=== PATIENT | male | born 1965 | race Caucasian/White ===

== ENCOUNTER → 2016-09-11 | Outpatient (CLI) | payer OTHER ==
[~2016-09-11] MED LIST: ASPI81TA28 PO; ATEN50TA8 PO; CHOL1000 PO; COEN1TAB3 PO; DULA0.5I SC; GLUC15009 PO; GLY/5 PO; LISI10TA PO; METF-384 PO; MULT-506 PO; OMEG10007 PO; PIOG1TAB23 PO; SIMV40TA2 PO
[2016-09-11 13:17] LABS: ESTIMATED AVERAGE GLUCOSE 192 mg/dl; HA1C FLAG Normal (Normal)
[2016-09-11 13:18] LABS: RATIO 8.3 mcg/mg (0-30.0)
[2016-09-11 14:04] LABS: ALT/SGPT 97 U/L (12-78); AST/SGOT 55 U/L (15-37); BLOOD UREA NITROGEN 16 mg/dl (7-18); BUN/CREATININE RATIO 16.3 (10-20); CALCIUM 9.5 mg/dl (8.5-10.1); CARBON DIOXIDE 28 mmol/L (21-32); CHLORIDE 100 mmol/L (98-107); CHOLESTEROL 191 mg/dl (0-200); CREATININE 0.98 mg/dl (0.60-1.40); GLUCOSE 207 mg/dl (70-99); POTASSIUM 4.6 mmol/L (3.5-5.1); SODIUM 136 mmol/L (136-145); TRIGLYCERIDES 241 mg/dl (0-150); VERY LOW DENSITY LIPOPROT CALC 48 mg/dl
[2016-09-11 14:06] LABS: ALB/GLOB RATIO 1.1 (0.9-2); ALKALINE PHOSPHATASE 79 U/L (45-117); CHOLESTEROL/HDL RATIO 4.5; HDL CHOLESTEROL 42 mg/dl; LDL CHOLESTEROL CALCULATED 101 mg/dl
== END | disposition home or self-care (01) ==
LOC: C.LABPBG 11:16
PROVIDERS: ATTEND Physician Assistant
DX: E78.5 Hyperlipidemia, unspecified (principal); E11.9 Type 2 diabetes mellitus without complications; I10 Essential (primary) hypertension

== ENCOUNTER → 2016-10-03 | Outpatient (CLI) | payer OTHER ==
[2016-10-03 12:43] LABS: HEMATOCRIT 42.9 % (42-52); MEAN CELL VOLUME 88.3 fL (80-100); MEAN CORPUSCULAR HEMOGLOBIN 28.2 pg (25-34); MEAN CORPUSCULAR HGB CONC 31.9 g/dl (32-36); MEAN PLATELET VOLUME 9.1 fL (7.4-10.4); PLATELET COUNT 186 K/uL (130-400); RED BLOOD COUNT 4.86 M/uL (4.7-6.1); WHITE BLOOD COUNT 7.15 K/uL (4.8-10.8)
[2016-10-03 13:03] LABS: THYROID STIMULATING HORMONE 0.87 uIu/ml (0.300-4.500)
== END | disposition home or self-care (01) ==
LOC: C.LAB1850 10:47
PROVIDERS: ATTEND Internal Medicine Endocrinology, Diabetes & Metabolism
DX: E11.9 Type 2 diabetes mellitus without complications (principal)

== ENCOUNTER → 2016-10-05 | Outpatient (CLI) | payer OTHER ==
--- NOTE | 2016-10-05 08:51 | DIAGNOSTIC IMAGING REPORT ---
THYROID ULTRASONOGRAPHY CLINICAL HISTORY: Thyromegaly COMPARISON STUDY: No previous studies for comparison. FINDINGS: The right of the thyroid measures 5.5 x 2 x 2.3 cm. The left lobe measures 5.5 x 2.5 x 2.1 cm. Both lobes are heterogeneous in echotexture. No focal nodules are visualized. IMPRESSION: Slight thyroid gland heterogeneity. No focal masses identified. Electronically signed by: Samuel Montague M.D. 10/05/2016 8:50 AM Dictated Date/Time: 10/05/2016 8:49 AM
--- NOTE | 2016-10-05 08:56 | DIAGNOSTIC IMAGING REPORT ---
ABDOMINAL ULTRASOUND, RIGHT UPPER QUADRANT HISTORY: Elevated transaminase level. COMPARISON: None. FINDINGS: Hepatic echogenicity is increased. This study is compromised by suboptimal penetration. No gallstones are identified. There is no gallbladder wall thickening. No biliary ductal dilatation is evident. Common bile duct measures 6 mm in caliber although is partially obscured. The pancreatic body is normal. The head and tail are obscured. There is no right hydronephrosis. IMPRESSION: 1. Increased hepatic echogenicity consistent with fatty infiltration. 2. No biliary ductal dilatation or gallstones. 3. Study compromised by suboptimal penetration. Electronically signed by: Huy Barnett M.D. 10/05/2016 8:55 AM Dictated Date/Time: 10/05/2016 8:49 AM
== END | disposition home or self-care (01) ==
LOC: C.ULTR 08:15
PROVIDERS: ATTEND Internal Medicine Endocrinology, Diabetes & Metabolism
DX: E01.0 Iodine-deficiency related diffuse (endemic) goiter (principal); R74.0 Nonspecific elevation of levels of transaminase and lactic acid dehydrogenase [LDH]

== ENCOUNTER → 2016-10-18 | Outpatient (CLI) | payer OTHER ==
[~2016-10-18] VITALS: Ht 172.7 cm; Wt 121.0 kg
[2016-10-18 12:22] VITALS: BP 145/87; PULSE 82; Ht 172.7 cm; Wt 121.0 kg
== END | disposition home or self-care (01) ==
LOC: C.NEUR 09:20
PROVIDERS: ATTEND Internal Medicine Pulmonary Disease
DX: G47.33 Obstructive sleep apnea (adult) (pediatric) (principal)

== ENCOUNTER → 2016-11-27 | Outpatient (CLI) | payer OTHER ==
--- NOTE | 2016-11-28 06:11 | SPLIT NIGHT TECHNICIAN REPORT ---
[facility] Split Night Polysomnogram - Shelving Supervisor Report Study date: 11/27/2016 Referring Physician: MARCIA HURD DO, DO Name: HARDEEP VALLE Shelving Supervisor: BETH Fisher. Date of : 1965 Height: 51 years, Height 5' 8" Sex: Male Weight: 266 lbs Age: 51 BMI: Medications: 40.44 ONETOUCH SYSTEM, VICTOZA 18 MG/3 ML, VIT D 03306 UNIT, ASPIRIN 81 MG, ATENOLOL 50 MG, CO Q 10 100 MG, FISH OIL, GLUCOSAMINE 1500 MG, GLYBURIDE 5 MG, LISINOPRIL 10 MG, METFORMIN 1000 MG, MULTI VIT, PIOGLITAZONE 30 MG, SIMVASTATIN 40 MG Patient History 51 yr-old male here for a baseline/split study. CPAP will be introduced if the AHI exceeds 15. He has a history of HTN and fatigue. His Pattison scale is 4. The test was started on room air. ETCO2 testing was not utilized during this study. Room 3 Parameters Monitored NPSG: E1-M2, E2-M1, Fp1-M2, Fp2-M1, F3-M2, F4-M2, F4-M1, C3-M2, C4-M2, C4-M1, O1-M2, O2-M2, O2-M1, T3-M2, T4-M1, P3-M2, P4-M1, CHIN1, CHIN2, HR, EKG, Legs, PFLOW, SNOR, FLOW, CFLOW, Tidal Volume, THOR, ABDO, SpO2, PLTH, CPRESS, ETCO2 Wave, ETCO2, pH SLEEP SUMMARY DATA DIAGNOSTIC TREATMENT Lights Out: 10:09:55 PM 1:18:55 AM Lights On: 1:13:25 AM 5:43:25 AM Total Recording Time (TRT): 183.5 min. 264.5 min. Total Sleep Time (TST): 127.5 min. 142.5 min. NREM Time: 127.5 min. 114.5 min. REM Time: 0.0 min. 28.0 min. Sleep Period Time (SPT): 141.5 min. 164.5 min. Sleep Efficiency (SE): 69 % 54 % Sleep Latency: 42.0 min. 94.5 min. Arousal Index: 25.9 16.4 PAP Treatment Levels: 4, 6, 8 * Optimal Pressure(s) SLEEP STAGING DATA DIAGNOSTIC TREATMENT Duration (min) TST % Duration (min) TST % Stage Wake: 56.0 min. -- 122.0 min. -- WASO: 14.0 min. -- 22.0 min. -- NREM: 127.5 min. 100 % 114.5 min. 80 % Stage N1: 29.5 min. 23 % 22.5 min. 16 % Stage N2: 98.0 min. 77 % 92.0 min. 65 % Stage N3: 0.0 min. 0 % 0.0 min. 0 % REM: 0.0 min. 0 % 28.0 min. 20 % POSITIONAL DATA Event Count Index Event Count Index Supine: 164 76.7 38 15.6 Supine NREM: 164 76.7 33 16.8 Supine REM: N/A N/A 5 11 Non-Supine: N/A N/A N/A N/A Non-Supine NREM: N/A N/A N/A N/A Non-Supine REM: N/A N/A N/A N/A AROUSAL SUMMARY DATA: Event Count Index Event Count Index Apnea Arousals: 3 2.4 1 1.3 Hypopnea Arousals: 28 13.2 15 6.3 Snore Arousals: 2 0.9 0 0.0 PLM Arousals: 0 0.0 11 4.6 Non-Specific Arousals: 16 7.5 9 3.8 Total Arousals: 55 25.9 39 16.4 MYOCLONUS (PLM) Event Count Index Event Count Index PLM: 11 5.2 121 50.9 PLM AROUSAL: 0 0.0 11 4.6 PLM W/O AROUSAL 11 5.2 110 46.3 PLM W/RESP EVENT 2 0.0 8 0.0 MYOCLONUS (PLM) Event Count Index Event Count Index LM: 4 33.9 30 12.6 LM AROUSAL: 4 1.9 3 1.3 LM W/O AROUSAL LM W/RESP EVENT LM NON SPECIFIC 45 21.2 119 50.1 HEART RATE DATA DIAGNOSTIC TREATMENT Sleep (bpm): 81 83 REM (bpm): N/A 91 NREM (bpm): 90 91 Tachycardia Count: 0 0 Tachycardia Duration: 0.00 0 Bradycardia Count: 0 0 Bradycardia Duration: 0.00 0 DIAGNOSTIC PORTION TREATMENT PORTION RESPIRATORY DATA Event Count Index Event Count Index AHI: -- 76.7 -- 15.6 RDI: -- 77.2 -- 16 Obstructive Apnea: 5 2.4 1 0.4 Central Apnea: 0 0.0 1 0.4 Mixed Apnea: 0 0.0 1 0.4 Hypopnea: 158 74.4 34 14.3 RERA: 1 0.5 1 0.4 Total Apneas: 5 2.4 3 1.3 RESPIRATORY DATA REM NREM SLEEP REM NREM SLEEP Supine Position: Obstructive Apneas: N/A 5 5 0 1 1 Central Apneas: N/A 0 0 0 1 1 Mixed Apneas: N/A 0 0 0 1 1 Hypopneas: N/A 158 158 5 29 34 RERA N/A 1 1 0 1 1 Total Supine Events: N/A 164 164 5 33 38 Supine AHI: N/A 76.7 76.7 11 16.8 15.6 Supine RDI: N/A 77.2 77.2 10.7 17.3 16.0 REM NREM SLEEP REM NREM SLEEP Non-Supine Position: Obstructive Apneas: N/A N/A N/A N/A N/A N/A Central Apneas: N/A N/A N/A N/A N/A N/A Mixed Apneas: N/A N/A N/A N/A N/A N/A Hypopneas: N/A N/A N/A N/A N/A N/A RERA N/A N/A N/A N/A N/A N/A Total Supine Events: N/A N/A N/A N/A N/A N/A Supine AHI: N/A N/A N/A N/A N/A N/A Supine RDI: N/A N/A N/A N/A N/A N/A OXYGEN DESTAURATION DATA: Event Count Index Event Count Index REM Desaturations: N/A N/A 13 27.9 NREM Desaturations: 184 86.6 47 24.6 SNORE DATA DIAGNOSTIC TREATMENT Snore Time: 9.2 2:53:25 AM Snore TST%: 5 2 Snore Arousal Count: 2 0 Snore Arousal Index: 0.9 0.0 Desaturation Event Summary: Minimum %SpO2 Event Count Mean/Min/Max Duration(sec.) Desaturation Index % Time In Bed > 90 348 20.9 / 5.8 / 60.0 68.9 67.6 86 - 90 58 20.5 / 7.0 / 47.8 25.8 30.1 81 - 85 0 N/A 0.0 2.3 76 - 80 0 N/A 0.0 0.0 71 - 75 0 N/A 0.0 0.0 66 - 70 0 N/A 0.0 0.0 61 - 65 0 N/A 0.0 0.0 56 - 60 0 N/A 0.0 0.0 51 - 55 0 N/A 0.0 0.0 < 50 0 N/A 0.0 0.0 OXYGEN SATURATION DATA DIAGNOSTIC TREATMENT SpO2 Mean Sleep: 90 % 91 % SpO2 Mean REM: N/A % 91 % SpO2 Mean NREM: 90 % 91 % SpO2 Minimum Sleep: 81 % 86 % SpO2 Minimum REM: N/A % 86 % SpO2 Minimum NREM: 81 % 86 % Time Below 90% (TST): 60.7 31.4 Time Below 88% (TST): 30.1 4.9 Total REM NREM Awake <50% 0.0 min. 0.0 min. 0.0 min. 0.0 min. 51 - 60% 0.0 min. 0.0 min. 0.0 min. 0.0 min. 61 - 70% 0.0 min. 0.0 min. 0.0 min. 0.0 min. 71 - 80% 0.0 min. 0.0 min. 0.0 min. 0.0 min. 81 - 90% 145.0 min. 11.8 min. 120.7 min. 12.5 min. 91 - 100% 303.0 min. 16.2 min. 121.3 min. 165.5 min. Average 92 91 90 95 Minimum SpO2 81 86 81 83 Desaturation Event Index 49.3 27.9 57.3 41.8 # Desat. Events below 89% 201 8 158 35 Time(%) with Saturation below 89% 14.4 1.1 12.1 1.2 Time(min.) with Saturation below 89% 64.7 5.1 54.3 5.3 Recording Shelving Supervisor Comments: Mr. Valle slept in the right and supine positions. Cardiac arrhythmias were noted (please refer to the print outs) PLMs were noted. No bruxism noted. Snoring was noted and scored as a 2 on a scale of 1 through 5. (0=no snoring, 5=snoring loud enough to be heard through a closed door or down the darden way). At 1:10 am, he met specific Split-Night criteria during the diagnostic portion of this study. CPAP was initiated at +4 CMH2O and up-titrated to a level of +8 CMH2O, Cflex 2 which nearly eliminated all respiratory events and snoring. A Mirage FX Soft edge nasal mask size standard was used during titration. He did not wake up to use the restroom during the night. Mr. Valle stated that he slept a little better than usual. The final report will be interpreted and signed by a sleep physician. The completed physician report will then be placed in the patient medical record. Therapy Event: Therapy (cm H20) 0 4 6 8 Total Time at Pressure (min.) 183.5 111.1 54.2 99.1 TST at Pressure (min.) 127.5 16.1 43.7 82.6 # Periods 1 1 1 1 Sleep Onset (min.) 42.0 94.5 0.0 0.0 REM Onset (min.) N/A N/A 46.4 0.1 Sleep Efficiency % 69 14 80 83 Wakefulness (%) 30.5 85.5 19.4 16.6 Wakefulness (min.) 56.0 95.0 10.5 16.5 NREM 1 (%) 16.1 2.2 21.2 8.6 NREM 1 (min.) 29.5 2.5 11.5 8.5 NREM 2 (%) 53.4 12.3 52.1 50.6 NREM 2 (min.) 98.0 13.6 28.2 50.1 NREM 3 (%) 0.0 0.0 0.0 0.0 NREM 3 (min.) 0.0 0.0 0.0 0.0 REM (%) 0.0 0.0 7.4 24.2 REM (min.) 0.0 0.0 4.0 24.0 # Arousals 55 4 25 10 Arousal Index 25.9 14.9 34.3 7.3 # Snore 436 2 4 4 Snore Index 205.2 7.4 5.5 2.9 AHI 76.7 29.7 31.6 4.4 AHI Supine 76.7 29.7 31.6 4.4 AHI Non-Supine N/A N/A N/A N/A NREM AHI 76.7 29.7 33.2 2.0 REM AHI N/A N/A 15.0 10.0 RDI 77.2 33.5 31.6 4.4 # Obstructive 5 1 0 0 # Central Ap 0 0 1 0 # Mixed 0 0 1 0 # Hypopneas 158 7 21 6 RERAS 1 1 0 0 Total Respiratory Events 164 9 23 6 Time Below SpO2 89.00% (min.) 44.8 8.0 1.8 4.8 Mean NREM SpO2 (%) 90 89 91 91 Mean REM SpO2 (%) N/A N/A 91 91 Mean Sleep SpO2 (%) 90 89 91 91 Min NREM SpO2 (%) 81 86 86 88 Min REM SpO2 (%) N/A N/A 88 86 Position Supine (min.) 127.5 16.1 43.7 82.6 Position Non-supine (min.) 0.0 0.0 0.0 0.0 LM Index Sleep 39.1 133.8 130.3 14.5 LM Index NREM 39.1 133.8 132.9 16.4 LM Index REM N/A N/A 105.0 10.0 Mean Heart Rate (bpm) 81 88 84 82 Min Heart Rate (bpm) 75 83 75 69
--- NOTE | 2016-12-03 16:07 | Sleep Study ---
Sleep Study Report Date of Service: 11/27/2016 Sleep Study Report CLINICAL DATA: Patient is referred by Dr.Nini Cerda for a sleep study. He is a 51-year-old male who has a history of morning sleepiness and decreased energy level. He completed the [place] Sleepiness Scale and had a score of only 4. This is lower than expected considering his history of some sleepiness driving. He has a history of hypertension and diabetes. His BMI is elevated at 40.44. This was an in-lab split sleep study. SLEEP ARCHITECTURE: During the diagnostic portion of the study the sleep period time was 141.5 minutes. The total sleep time was 127.5 minutes. The sleep efficiency was moderately reduced to 69 percent. The sleep latency was very prolonged at 42 minutes. Sleep consisted of stage N1 23 percent, stage N2 77 percent, stage N3 0 percent, and stage REM 0 percent. During the therapeutic portion of the study the patient's nocturnal events were treated with nasal CPAP. The sleep period time was 164.5 minutes total sleep time was 142.5 minutes. The sleep efficiency was severely reduced to 54 percent. The sleep latency was severely prolonged at 94.5 minutes. Sleep consisted of stage N1 16 percent, stage N2 65 percent, stage N3 0 percent, and stage REM 20 percent. AROUSAL DATA: During the diagnostic portion of the study patient had a total of 55 arousals including 3 apnea arousals, 28 hypopnea arousals, 2 snoring arousals, and 16 nonspecific arousals. Arousal index was elevated at 25.9. During the therapeutic portion of the study the patient had 39 arousals including 1 apnea arousal, 15 hypopnea arousals, 11 PLM arousals, and 9 nonspecific arousals. The arousal index was 16.4. PLM DATA: During the diagnostic portion of the study the patient had 11 PLMS for index of 5.2. There were 0 arousals associated with limb movements. During the therapeutic portion of the study the patient had 121 periodic limb movements for an index of 50.9. There were 11 arousals for a PLM arousal index of 4.6. EKG: The underlying cardiac rhythm was normal sinus. He had a moderate number of PVCs throughout the night. The cardiac rates averaged 90 beats per minute. RESPIRATORY DATA: During the diagnostic portion of the study the patient had 5 obstructive apneas and 158 hypopneas. The hypopneas were scored by the 4 percent desaturation rule. The apnea-hypopnea index was severely elevated at 76.7 events per hour. During the treatment portion of the study when the patient was treated with nasal CPAP, had 1 obstructive apnea, 1 central apnea, 1 mixed apnea, and 34 hypopneas. The apnea-hypopnea index was 15.6. At the final pressure of 8 centimeters the apnea-hypopnea index was 4.4 events per hour. OXIMETRY DATA: During the diagnostic portion of the study the patient had an average saturation of 90 percent and a minimum saturation of 81 percent. There were 30.1 minutes with saturations less than 88 percent. During the therapeutic portion of the study the average saturation was 91 percent. The minimum saturation was 86 percent. There was a total of only 4.9 minutes with saturations less than 88 percent. FUEL YARD OPERATOR'S COMMENTS: The patient slept in the right and supine positions. Cardiac arrhythmias were noted. PLMS were noted. No bruxism noted. Snoring was noted and scored as a 2 on a scale of 1 through 5. At 1:10 a.m. the patient met specific split night criteria during the diagnostic portion of the study. CPAP was initiated at 4 centimeters and up titrated to a level of 8 centimeters with C flex 2. This nearly eliminated all respiratory events and snoring. IMPRESSIONS 1. Obstructive sleep apnea-severe 2. Cardiac arrhythmia-PVCs COMMENTS: The patient has severe sleep apnea. His apnea-hypopnea index is severely elevated. Nasal CPAP was initiated. There was a significant improvement in his sleep disordered breathing. He did have a prolonged period to initiate sleep both prior to the diagnostic study and at the started the therapeutic study. His sleep was fairly well consolidated after 3 a.m.. There was improvement in the oxygenation during the therapeutic portion of the study. There was a significant increase in the frequency of periodic limb movements. This is not unexpected with resolution of sleep disordered breathing. Clearly the patient should be treated in light of his severe apnea and with his comorbidities including hypertension and diabetes. RECOMMENDATIONS: 1. It is advised that the patient be treated with nasal CPAP at 8 centimeters with C flex 2. 2. The patient has a severe elevation of body mass index of 40.44. A weight reduction program is advised. 3. It is suggested that he be ordered a Mirage FX soft edge nasal mask size standard. 4. If possible the patient should avoid sleeping in the supine position. 5. He should be seen in follow-up between day 31 day 90 after receiving his CPAP. Copies To 1: Sergo Rangel DO; Aquilino Hoskins D.O.; Starla Cerda M.D.
== END | disposition home or self-care (01) ==
LOC: C.NEUR 21:00
PROVIDERS: ATTEND Internal Medicine Pulmonary Disease
DX: G47.33 Obstructive sleep apnea (adult) (pediatric) (principal)

== ENCOUNTER → 2017-01-17 | Outpatient (CLI) | payer BC ==
[2017-01-17 13:18] LABS: ESTIMATED AVERAGE GLUCOSE 105 mg/dl; HA1C FLAG Normal (Normal)
== END | disposition home or self-care (01) ==
LOC: C.LABPBG 11:27
PROVIDERS: ATTEND Physician Assistant
DX: Z00.00 Encounter for general adult medical examination without abnormal findings (principal)

== ENCOUNTER → 2017-01-31 | Outpatient (CLI) | payer BC ==
[2017-01-31 13:48] LABS: CHOLESTEROL/HDL RATIO 2.4
[2017-01-31 13:53] LABS: ESTIMATED AVERAGE GLUCOSE 105 mg/dl; HA1C FLAG Normal (Normal)
== END | disposition home or self-care (01) ==
LOC: C.LABPBG 09:46
PROVIDERS: ATTEND Neuromusculoskeletal Medicine & OMM
DX: E11.65 Type 2 diabetes mellitus with hyperglycemia (principal); E55.9 Vitamin D deficiency, unspecified; E78.5 Hyperlipidemia, unspecified

== ENCOUNTER → 2017-02-22 | Outpatient (CLI) | payer BC ==
[~2017-02-22] VITALS: Ht 172.7 cm; Wt 247.0 kg
[2017-02-22 09:10] VITALS: BP 123/80; PULSE 74; Ht 172.7 cm; Wt 247.0 kg
== END | disposition home or self-care (01) ==
LOC: C.NEUR 08:28
PROVIDERS: ATTEND Internal Medicine Pulmonary Disease
DX: G47.33 Obstructive sleep apnea (adult) (pediatric) (principal)

== ENCOUNTER → 2017-05-15 | Day surgery (SDC) | payer BC, OTHER ==
[2017-05-04 10:49] VITALS: Ht 172.7 cm; Wt 115.5 kg
[~2017-05-15] VITALS: Ht 172.7 cm; Wt 115.5 kg
[~2017-05-15] MED LIST changes: +LIDOCAINE HCL 2% 2 ML VIAL (20MG/ML) ONE; +PROPOFOL IV EMULSION 10 MG/ML 20 ML VIAL IV ONE; +SODIUM CHLORIDE 0.9% 500ML 500 ML IV ONE
--- NOTE | 2017-05-15 09:58 | Endo History and Physical ---
History & Physical Date of Service: May 15, 2017. Chief Complaint: Family history of colon cancer Referring Physician: Dr. Aquilino Hoskins History of Present Illness 51 yo CM who presents for colonoscopy secondary to family history of colon cancer (Brother). Past Surgical History Hx Cardiac Surgery: No Hx Internal Defibrillator: No Hx Pacemaker: No Hx Abdominal Surgery: No Hx of Implantable Prosthesis: No Hx Post-Op Nausea and Vomiting: No Hx Cancer Surgery: No Hx Thoracic Surgery: No Hx Orthopedic: No Hx Urinary Tract Surgery: Yes (PENILE OPENING STRETCHING) Family History Colon CA Social History Smoking Status: Never Smoker Hx Substance Use: No Hx Alcohol Use: Yes ("1 NIGHT/WEEK SOCIALLY") Allergies Coded Allergies: No Known Allergies (Verified , 05/15/17) Current Medications Reported Home Medications Medications Dose Route/Sig Max Daily Dose Days Date Category Vitamin D3 (Cholecalciferol) 1,000 Unit Tab 1 Tab PO QAM 05/04/17 Reported Trulicity (Dulaglutide) 1.5 Mg/0.5 Ml Inj 1.5 Mg SC WK 05/04/17 Reported Zocor (Simvastatin) 40 Mg Tab 40 Mg PO QPM 05/04/17 Reported Pioglitazone Hcl 30 Mg Tab 1 Tab PO QPM 05/04/17 Reported Multivitamin (Multivitamins) Tab 1 Tab PO DAILY 05/04/17 Reported Glucophage (Metformin Hcl) 1,000 Mg Tab 1,000 Mg PO BID 05/04/17 Reported Prinivil (Lisinopril) 10 Mg Tab 10 Mg PO QAM 05/04/17 Reported Diabeta (Glyburide) 5 Mg Tab 0.5 Tab PO QPM 05/04/17 Reported Glucosamine (Glucosamine Hydrochloride) 1,500 Mg Tab 1 Tab PO QAM 05/04/17 Reported [place]-3 (Fish Oil) 1 Ea Cap 3 Cap PO QAM 05/04/17 Reported Coenzyme Q10 (Coenzyme Q10 (Ubidecarenone)) 100 Mg Tab 1 Tab PO QAM 05/04/17 Reported Tenormin (Atenolol) 50 Mg Tab 50 Mg PO QAM 05/04/17 Reported Aspirin Ec (Aspirin) 81 Mg Tab 81 Mg PO QAM 05/04/17 Reported Vital Signs Weight (Kilograms): 115.45 Height (Feet): 5 Height (Inches): 8 Date Time Temp Pulse Resp B/P (MAP) Pulse Ox O2 Delivery O2 Flow Rate FiO2 05/15/17 08:51 36.8 85 16 118/80 (93) 97 Room Air Physical Exam General Appearance: WD/WN, no apparent distress Respiratory/Chest: Auscultation: breath sounds normal Cardiovascular: Heart Auscultation: RRR Abdomen: Bowel Sounds: normal Inspection & Palpation: soft, non-distended, no tenderness, guarding & rebound Assessment and Plan Assessment: 51 yo CM who presents for colonoscopy secondary to family history of colon cancer (Brother). Plan: Proceed with colonoscopy.
--- NOTE | 2017-05-15 10:46 | GI REPORT ---
Procedure Date: 05/15/2017 10:29 AM Procedure: Colonoscopy Indications: Family history of colon cancer in a first-degree relative Medicines: Monitored Anesthesia Care Complications: No immediate complications. Estimated Blood Loss: Estimated blood loss: none. Procedure: Pre-Anesthesia Assessment: - Prior to the procedure, a History and Physical was performed, and patient medications and allergies were reviewed. The patient's tolerance of previous anesthesia was also reviewed. The risks and benefits of the procedure and the sedation options and risks were discussed with the patient. All questions were answered, and informed consent was obtained. Prior Anticoagulants: The patient has taken aspirin, last dose was 1 day prior to procedure. ASA Grade Assessment: II - A patient with mild systemic disease. After reviewing the risks and benefits, the patient was deemed in satisfactory condition to undergo the procedure. After I obtained informed consent, the scope was passed under direct vision. Throughout the procedure, the patient's blood pressure, pulse, and oxygen saturations were monitored continuously. The scope was introduced through the anus and advanced to the terminal ileum. The colonoscopy was performed without difficulty. The patient tolerated the procedure well. The quality of the bowel preparation was good. The terminal ileum, the appendiceal orifice and the rectum were photographed. Findings: The perianal and digital rectal examinations were normal. A 3 mm polyp was found in the ascending colon. The polyp was sessile. The polyp was removed with a cold snare. Resection and retrieval were complete. Non-bleeding internal hemorrhoids were found during retroflexion. The hemorrhoids were small. Impression: - One 3 mm polyp in the ascending colon, removed with a cold snare. Resected and retrieved. - Non-bleeding internal hemorrhoids. Recommendation: - Resume previous diet. - Continue present medications. - Repeat colonoscopy for surveillance based on pathology results. - Return to primary care physician as previously scheduled. Rei Barriga DO 05/15/2017 10:45:48 AM This report has been signed electronically. Note Initiated On: 05/15/2017 10:29 AM I attest to the content of the Intraoperative Record and orders documented therein, exceptions below
--- NOTE | 2017-05-15 10:46 | Discharge Instructions ---
Endoscopy Patient Instructions Date / Procedure(s) Performed May 15, 2017. Colonoscopy Allergy Information Coded Allergies: No Known Allergies (Verified , 05/15/17) Discharge Date / Findings May 15, 2017. Colon polyp Internal hemorrhoids Medication Instructions Stopped Medication(s): Patient took only his blood pressure meds this am. OK to resume all medications today as prescribed Reported Home Medications Medications Dose Route/Sig Max Daily Dose Days Date Category Vitamin D3 (Cholecalciferol) 1,000 Unit Tab 1 Tab PO QAM 05/04/17 Reported Trulicity (Dulaglutide) 1.5 Mg/0.5 Ml Inj 1.5 Mg SC WK 05/04/17 Reported Zocor (Simvastatin) 40 Mg Tab 40 Mg PO QPM 05/04/17 Reported Pioglitazone Hcl 30 Mg Tab 1 Tab PO QPM 05/04/17 Reported Multivitamin (Multivitamins) Tab 1 Tab PO DAILY 05/04/17 Reported Glucophage (Metformin Hcl) 1,000 Mg Tab 1,000 Mg PO BID 05/04/17 Reported Prinivil (Lisinopril) 10 Mg Tab 10 Mg PO QAM 05/04/17 Reported Diabeta (Glyburide) 5 Mg Tab 0.5 Tab PO QPM 05/04/17 Reported Glucosamine (Glucosamine Hydrochloride) 1,500 Mg Tab 1 Tab PO QAM 05/04/17 Reported [place]-3 (Fish Oil) 1 Ea Cap 3 Cap PO QAM 05/04/17 Reported Coenzyme Q10 (Coenzyme Q10 (Ubidecarenone)) 100 Mg Tab 1 Tab PO QAM 05/04/17 Reported Tenormin (Atenolol) 50 Mg Tab 50 Mg PO QAM 05/04/17 Reported Aspirin Ec (Aspirin) 81 Mg Tab 81 Mg PO QAM 05/04/17 Reported Provider Instructions Activity Restrictions - No exercising or heavy lifting for 24 hours. - Do not drink alcohol the day of the procedure. - Do not drive a car or operate machinery until the day after the procedure. - Do not make any important decisions or sign important papers in 24 hours after the procedure. Following Day: - Return to full activity which may include returning to work/school. Diet Start your diet with liquids and light foods (jello, soup, juice, toast). Then eat your usual diet if not nauseated. Treatment For Common After Affects For mild abdominal pain, bloating, or excessive gas: - Rest - Eat lightly - Lie on right side Follow-Up Information Follow-up with Dr. Aquilino Hoskins as scheduled Anesthesia Information What You Should Know You have had a procedure that required some medicine to reduce anxiety and discomfort. This treatment is called moderate sedation. After receiving the treatment, you may be sleepy, but you will be able to breathe on your own. The effects of the treatment may last for several hours. Follow these instructions along with Activity/Diet recommendations noted above: * Do NOT do anything where dizziness or clumsiness would be dangerous. * Rest quietly at home today, then you can be up and about tomorrow. * Have a responsible person stay with you the rest of today. * You may have had an I.V. today. If so, you may take the dressing off later today. Recommendations Call your doctor if: * Trouble breathing * Continuous vomiting for more than 24 hours * Temperature above 101 degrees * Severe abdominal pain or bloating * Pain not relieved by pain medicine ordered * There is increased drainage or redness from any incision * A large amount of rectal bleeding greater than 2-3 tablespoons. (If you had a polyp/s removed or have hemorrhoids, a small amount of blood - from the rectum is to be expected.) * You have any unanswered questions or concerns. IN THE EVENT OF A SERIOUS EMERGENCY, GO TO THE NEAREST EMERGENCY ROOM Your discharge instructions were prepared by provider Rei Barriga. Patient Instructions Signature Page Joe Valle Patient (or Guardian) Signature/Date: I have read and understand the instructions given to me by my caregivers. Caregiver/RN/Doctor Signature/Date: The above-named patient and/or guardian has received patient instructions on this date. + Original Patient Signature Page (only) stays with chart. Please make copy for patient.
[2017-05-15 11:20] VITALS: BP 117/66; PULSE 76; O2SAT 99
--- NOTE | 2017-05-15 11:32 | Anesthesiology Progress Note ---
Anesthesia Post Op Note Date & Time May 15, 2017 at 11:32 Vital Signs Pain Intensity: 0 Vital Signs Past 12 Hours Date Time Temp Pulse Resp B/P (MAP) Pulse Ox O2 Delivery O2 Flow Rate FiO2 05/15/17 11:20 76 16 117/66 (83) 99 Room Air 05/15/17 11:05 79 16 109/65 (80) 98 Room Air 05/15/17 10:48 84 16 103/59 (74) 96 Room Air 05/15/17 08:51 36.8 85 16 118/80 (93) 97 Room Air Notes Mental Status: alert / awake / arousable, participated in evaluation Pt Amnestic to Procedure: Yes Nausea / Vomiting: adequately controlled Pain: adequately controlled Airway Patency, RR, SpO2: stable & adequate BP & HR: stable & adequate Hydration State: stable & adequate Anesthetic Complications: no major complications apparent
== END | disposition home or self-care (01) ==
LOC: C.GI 08:16
PROVIDERS: ATTEND Internal Medicine
DX: Z12.11 Encounter for screening for malignant neoplasm of colon (principal); D12.2 Benign neoplasm of ascending colon; K64.8 Other hemorrhoids; Z80.0 Family history of malignant neoplasm of digestive organs; Z79.82 Long term (current) use of aspirin; Z79.84 Long term (current) use of oral hypoglycemic drugs; Z79.899 Other long term (current) drug therapy

== ENCOUNTER → 2017-07-18 | Outpatient (CLI) | payer BC ==
[~2017-07-18] MED LIST changes: -LIDOCAINE HCL 2% 2 ML VIAL (20MG/ML) ONE; -PROPOFOL IV EMULSION 10 MG/ML 20 ML VIAL IV ONE; -SODIUM CHLORIDE 0.9% 500ML 500 ML IV ONE
[2017-07-18 13:05] LABS: HEMOGLOBIN A1C 5.3 % (4.5-5.6)
[2017-07-18 13:28] LABS: ALBUMIN 4.1 gm/dl (3.4-5.0); ALT/SGPT 35 U/L (12-78); AST/SGOT 21 U/L (15-37); BLOOD UREA NITROGEN 13 mg/dl (7-18); CALCIUM 9.6 mg/dl (8.5-10.1); CARBON DIOXIDE 26 mmol/L (21-32); CHOLESTEROL 141 mg/dl (0-200); CREATININE 0.94 mg/dl (0.60-1.40); GLUCOSE 88 mg/dl (70-99); POTASSIUM 4.4 mmol/L (3.5-5.1); SODIUM 139 mmol/L (136-145)
[2017-07-18 13:31] LABS: ALKALINE PHOSPHATASE 65 U/L (45-117); LDL CHOLESTEROL CALCULATED 74 mg/dl; TOTAL PROTEIN 7.7 gm/dl (6.4-8.2)
== END | disposition home or self-care (01) ==
LOC: C.LABPBG 09:58
PROVIDERS: ATTEND Physician Assistant
DX: Z00.00 Encounter for general adult medical examination without abnormal findings (principal); E55.9 Vitamin D deficiency, unspecified; E11.9 Type 2 diabetes mellitus without complications; E78.5 Hyperlipidemia, unspecified

== ENCOUNTER → 2017-08-16 | Outpatient (CLI) | payer BC ==
[~2017-08-16] VITALS: Ht 172.7 cm; Wt 117.1 kg
[2017-08-16 09:29] VITALS: BP 126/81; PULSE 92; Ht 172.7 cm; Wt 117.1 kg
== END | disposition home or self-care (01) ==
LOC: C.NEUR 08:12
PROVIDERS: ATTEND Internal Medicine Pulmonary Disease
DX: G47.33 Obstructive sleep apnea (adult) (pediatric) (principal)